=== PATIENT | male | born 1980 | race Caucasian/White ===

== ENCOUNTER 2016-11-07 19:55 | Emergency (ER) | payer SELFPAY ==
[~2016-11-07] VITALS: Ht 180.3 cm; Wt 113.5 kg
[~2016-11-07 19:55] MED LIST: HYDR-3240 PO; OMEP-110 PO; OMEP20TA62 PO; ONDA4TAB10 PO; RANI150T8 PO; TRAM50TA2 PO
[2016-11-07 19:56] VITALS: BP 117/78
[2016-11-07] MEDS ORDERED: KETOROLAC 30 MG/1 ML IM ONE (20:30)
[2016-11-07] MEDS ORDERED: DIAZEPAM 5 MG TABLET PO ONE (20:30)
[2016-11-07] MEDS ORDERED: HYDROcodone/APAP 5/325 TABLET PO ONE (20:30)
[2016-11-07] MEDS ORDERED: KETOROLAC 30 MG/1 ML ONE (21:06)
[2016-11-07] MEDS ORDERED: HYDROcodone/APAP 5/325 TABLET ONE (21:06)
[2016-11-07] MEDS ORDERED: DIAZEPAM 5 MG TABLET ONE (21:06)
== END 2016-11-07 21:30 | disposition home or self-care (01) ==
LOC: ED 21:00
DX: S39.012A Strain of muscle, fascia and tendon of lower back, initial encounter (principal); Z90.49 Acquired absence of other specified parts of digestive tract; X50.0XXA Overexertion from strenuous movement or load, initial encounter; Y93.89 Activity, other specified; Y92.89 Other specified places as the place of occurrence of the external cause; Y99.8 Other external cause status
CPT/HCPCS: 72110; 96372; 99284; J1885

== ENCOUNTER 2016-12-25 06:05 | Inpatient (IN) | payer OTHER ==
[~2016-12-25] VITALS: Ht 180.3 cm; Wt 99.2 kg
[2016-12-25] MEDS ORDERED: ONDANSETRON 2MG/ML, 2ML IVPush ONE (06:30)
[2016-12-25] MEDS ORDERED: MAALOX/HYOSCYAMINE/LIDOCAINE 45 ML BTL PO ONE (06:30)
[2016-12-25] MEDS ORDERED: SODIUM CHLORIDE FLUSH 10ML SYR IVF ONE (06:30)
[2016-12-25] MEDS ORDERED: FAMOTIDINE 20 MG/2 ML IVP ONE (06:30)
[2016-12-25] MEDS ORDERED: FAMOTIDINE 20 MG/2 ML ONE (06:40)
[2016-12-25] MEDS ORDERED: ONDANSETRON 2MG/ML, 2ML ONE (06:40)
[2016-12-25] MEDS ORDERED: MAALOX/HYOSCYAMINE/LIDOCAINE 45 ML BTL ONE (06:40)
[2016-12-25 06:42] LABS: HEMATOCRIT 45.5 % (39.2-51.8); HEMOGLOBIN 15.8 g/dL (13.7-18.0); WHITE BLOOD COUNT 8.3 x10^3/uL (3.4-10)
[2016-12-25 06:55] LABS: ASPARTATE AMINO TRANSFERASE 20 U/L (15-37); BLOOD UREA NITROGEN 10 mg/dL (7-18)
[2016-12-25] MEDS ORDERED: DICYCLOMINE 10 MG/ML, 2ML IM ONE (06:58)
[2016-12-25] MEDS ORDERED: HYDROmorphone 1 MG/ML, 1ML ONE (08:59)
[2016-12-25] MEDS ORDERED: HYDROmorphone 1 MG/ML, 1ML IV ONE (09:00)
[2016-12-25] MEDS ORDERED: ZIPRASIDONE 20 MG INJ IM ONE ×2 (10:30→10:34)
[2016-12-25] MEDS ORDERED: NS + 20MEQ KCL 1,000 ML IV SCH (11:22)
[2016-12-25] MEDS ORDERED: FAMOTIDINE 20 MG TABLET PO SCH (11:30)
[2016-12-25] MEDS ORDERED: ACETAMINOPHEN 325 MG TABLET PO PRN (11:30)
[2016-12-25] MEDS: LACTASE 9,000 UNITS TABLET PO SCH ×2 (11:30→16:00)
[2016-12-25] MEDS ORDERED: KETOROLAC 30 MG/1 ML IM PRN (11:30)
[2016-12-25] MEDS ORDERED: ENOXAPARIN 40 MG/0.4 ML SQ SCH (11:30)
[2016-12-25] MEDS ORDERED: ONDANSETRON 2MG/ML, 2ML IVPush PRN (11:30)
[2016-12-25] MEDS ORDERED: ZIPRASIDONE 20 MG INJ IM PRN (11:30)
[2016-12-25] MEDS ORDERED: PROMETHAZINE 25 MG/ML, 1ML IM PRN (11:30)
[2016-12-25] MEDS: METOCLOPRAMIDE 5 MG/ML, 2ML IVPush SCH ×2 (12:20→18:05)
[2016-12-25] MEDS ORDERED: KETOROLAC 30 MG/1 ML IVPush PRN ×2 (12:35→17:30)
[2016-12-25 13:29] VITALS: BP 146/78
[2016-12-25] MEDS ORDERED: MAALOX/HYOSCYAMINE/LIDOCAINE 45 ML BTL PO PRN (16:30)
[2016-12-25 19:48] VITALS: BP 133/84
== END 2016-12-25 21:15 | disposition left against medical advice (07) | DRG 392 ==
LOC: ED 06:39 → EDIP 10:43 → 3NE 11:55
PROVIDERS: ADMIT Family Medicine; ATTEND Family Medicine
DX: R10.12 Left upper quadrant pain (principal); E73.9 Lactose intolerance, unspecified; F12.10 Cannabis abuse, uncomplicated; Z80.0 Family history of malignant neoplasm of digestive organs; Z90.49 Acquired absence of other specified parts of digestive tract; Z87.11 Personal history of peptic ulcer disease; K31.89 Other diseases of stomach and duodenum; R11.2 Nausea with vomiting, unspecified
CPT/HCPCS: 36415; 74020; 80053; 81003; 83690; 85025; 93005; 96372; 96374; 96375; J1170; J1650; J1885; J2405; J3480; J3486; J0500; J2765; S0028

== ENCOUNTER 2017-02-26 07:42 | Emergency (ER) | payer SELFPAY ==
[~2017-02-26] VITALS: Ht 180.3 cm; Wt 102.0 kg
[2017-02-26] MEDS ORDERED: ONDANSETRON 2MG/ML, 2ML ONE (08:25)
[2017-02-26] MEDS ORDERED: RANI75TA12 PO (08:31)
[2017-02-26] MEDS ORDERED: HYDROmorphone 1 MG/ML, 1ML ONE (08:35)
[2017-02-26] MEDS ORDERED: DIPHENHYDRAMINE 50 MG/ML, 1ML IVPush ONE (09:00)
[2017-02-26] MEDS ORDERED: HYDROmorphone 1 MG/ML, 1ML IVPush PRN (09:00)
[2017-02-26] MEDS ORDERED: METOCLOPRAMIDE 5 MG/ML, 2ML IVPush ONE (09:00)
[2017-02-26] MEDS ORDERED: ONDANSETRON 2MG/ML, 2ML IVPush ONE (09:00)
[2017-02-26] MEDS ORDERED: SODIUM CHLORIDE FLUSH 10ML SYR IVF ONE (09:00)
[2017-02-26] MEDS ORDERED: HALOPERIDOL 5 MG/ML IV ONE (09:00)
[2017-02-26] MEDS ORDERED: SODIUM CHLORIDE 0.9% 1,000ML IVBOLUS ONE (09:00)
[2017-02-26 09:03] LABS: ASPARTATE AMINO TRANSFERASE 16 U/L (15-37); BLOOD UREA NITROGEN 7 mg/dL (7-18)
[2017-02-26] MEDS ORDERED: HALOPERIDOL 5 MG/ML ONE (09:03)
[2017-02-26] MEDS ORDERED: DIPHENHYDRAMINE 50 MG/ML, 1ML ONE (09:03)
[2017-02-26] MEDS ORDERED: METOCLOPRAMIDE 5 MG/ML, 2ML ONE (09:03)
[2017-02-26 09:06] LABS: HEMATOCRIT 49.8 % (39.2-51.8); HEMOGLOBIN 17.2 g/dL (13.7-18.0); WHITE BLOOD COUNT 13.8 x10^3/uL (3.4-10)
[2017-02-26] MEDS ORDERED: HALOPERIDOL 5 MG/ML IM ONE (09:30)
[2017-02-26 10:20] VITALS: BP 117/74
== END 2017-02-26 10:36 | disposition home or self-care (01) ==
LOC: ED 08:37
DX: G43.A0 Cyclical vomiting, in migraine, not intractable (principal); K21.9 Gastro-esophageal reflux disease without esophagitis; Z90.49 Acquired absence of other specified parts of digestive tract
CPT/HCPCS: 36415; 80053; 83690; 85025; 96361; 96372; 96374; 96375; 99285; J1170; J1200; J1630; J2405; J2765; J7030

== ENCOUNTER 2017-05-19 05:32 | Emergency (ER) | payer SELFPAY ==
[~2017-05-19] VITALS: Ht 180.3 cm; Wt 100.9 kg
[~2017-05-19 05:32] MED LIST changes: +RANI75TA12 PO
[2017-05-19] MEDS ORDERED: HALOPERIDOL 5 MG/ML ONE (06:25)
[2017-05-19] MEDS ORDERED: DIPHENHYDRAMINE 50 MG/ML, 1ML ONE (06:25)
[2017-05-19] MEDS ORDERED: DIPHENHYDRAMINE 50 MG/ML, 1ML IVPush ONE ×2 (06:30)
[2017-05-19] MEDS ORDERED: SODIUM CHLORIDE FLUSH 10ML SYR IVF ONE (06:30)
[2017-05-19] MEDS ORDERED: HALOPERIDOL 5 MG/ML IM ONE (06:30)
[2017-05-19] MEDS ORDERED: HALOPERIDOL 5 MG/ML IVPush ONE (06:30)
[2017-05-19] MEDS ORDERED: SODIUM CHLORIDE 0.9% 1,000ML IVBOLUS ONE (06:30)
[2017-05-19] MEDS ORDERED: OXYcodone/APAP 5/325MG TABLET PO ONE (07:30)
[2017-05-19] MEDS ORDERED: OXYcodone/APAP 5/325MG TABLET ONE (07:37)
[2017-05-19 07:38] VITALS: BP 105/73
== END 2017-05-19 09:09 | disposition home or self-care (01) ==
LOC: ED 07:32
DX: G43.A0 Cyclical vomiting, in migraine, not intractable (principal)
CPT/HCPCS: 74021; 96361; 96372; 96374; 99285; J1200; J1630; J7030

== ENCOUNTER 2017-05-21 03:25 | Emergency (ER) | payer SELFPAY ==
[~2017-05-21] VITALS: Ht 180.3 cm; Wt 97.6 kg
[2017-05-21] MEDS ORDERED: MAALOX/HYOSCYAMINE/LIDOCAINE 45 ML BTL ONE (04:05)
[2017-05-21] MEDS ORDERED: ZIPRASIDONE 20 MG INJ IM ONE ×2 (04:09→04:30)
[2017-05-21] MEDS ORDERED: ONDANSETRON ODT 4 MG ONE (04:09)
[2017-05-21] MEDS ORDERED: MAALOX/HYOSCYAMINE/LIDOCAINE 45 ML BTL PO ONE (04:30)
[2017-05-21] MEDS ORDERED: SODIUM CHLORIDE 0.9% 1,000ML IVBOLUS ONE (04:30)
[2017-05-21] MEDS ORDERED: ONDANSETRON 2MG/ML, 2ML IVPush ONE (04:30)
[2017-05-21 04:47] LABS: BASOPHILS # (AUTO) 0.04 x10^3/uL (0-0.1); BASOPHILS % (AUTO) 0 % (0-1); EOSINOPHILS # (AUTO) 0.02 x10^3/uL (0-0.4); EOSINOPHILS % (AUTO) 0 % (1-7); LYMPHOCYTES # (AUTO) 2.84 x10^3/uL (1-3.4); LYMPHOCYTES % (AUTO) 23 % (22-44); MD NO; MEAN CORPUSCULAR HEMOGLOBIN 33.2 pg (27.5-34.5); MEAN CORPUSCULAR HGB CONC 35.3 g/dL (33.2-36.2); MEAN CORPUSCULAR VOLUME 93.9 fL (81-97); MEAN PLATELET VOLUME 8.5 fL (7.4-10.4); MONOCYTES # (AUTO) 0.89 x10^3/uL (0.2-0.8); MONOCYTES % (AUTO) 7 % (2-9); NEUTROPHILS # (AUTO) 8.67 x10^3/uL (1.8-6.8); NEUTROPHILS % (AUTO) 70 % (42-75); PLATELET COUNT 201 x10^3/uL (130-400); RED BLOOD COUNT 5.06 x10^6/uL (4.38-5.82); RED CELL DISTRIBUTION WIDTH 12.3 % (9.4-14.8)
[2017-05-21 04:59] LABS: ALANINE AMINOTRANSFERASE 29 U/L (12-78); ALBUMIN 4.3 g/dL (3.4-5.0); ANION GAP 11 mmol/L (5-15); CALCIUM 8.8 mg/dL (8.5-10.1); CHLORIDE 103 mmol/L (98-107); CREATININE 0.95 mg/dL (0.7-1.3)
[2017-05-21 05:01] LABS: ALKALINE PHOSPHATASE 77 U/L (45-117); BILIRUBIN,TOTAL 1.6 mg/dL (0.2-1.0); TOTAL PROTEIN 7.5 g/dL (6.4-8.2)
[2017-05-21 06:02] VITALS: BP 161/92
== END 2017-05-21 06:04 | disposition home or self-care (01) ==
LOC: ED 04:03
DX: R11.2 Nausea with vomiting, unspecified (principal); R10.13 Epigastric pain; Z87.891 Personal history of nicotine dependence; Z90.49 Acquired absence of other specified parts of digestive tract
CPT/HCPCS: 36415; 80053; 83690; 85025; 96372; 99284; J3486

== ENCOUNTER 2017-10-06 05:36 | Emergency (ER) | payer OTHER ==
[~2017-10-06] VITALS: Ht 180.3 cm; Wt 100.1 kg
[~2017-10-06 05:36] MED LIST changes: +RANI150T23 PO; -RANI150T8 PO
[2017-10-06] MEDS ORDERED: ZIPRASIDONE 20 MG INJ IM ONE ×2 (06:00→06:30)
[2017-10-06] MEDS ORDERED: METOCLOPRAMIDE 5 MG/ML, 2ML ONE (06:00)
[2017-10-06 06:25] LABS: BASOPHILS # (AUTO) 0.04 x10^3/uL (0-0.1); BASOPHILS % (AUTO) 1 % (0-1); EOSINOPHILS # (AUTO) 0.16 x10^3/uL (0-0.4); EOSINOPHILS % (AUTO) 2 % (1-7); LYMPHOCYTES # (AUTO) 3.02 x10^3/uL (1-3.4); LYMPHOCYTES % (AUTO) 41 % (22-44); MD NO; MEAN CORPUSCULAR HEMOGLOBIN 33.4 pg (27.5-34.5); MEAN CORPUSCULAR VOLUME 95.4 fL (81-97); MONOCYTES # (AUTO) 0.41 x10^3/uL (0.2-0.8); MONOCYTES % (AUTO) 5 % (2-9); NEUTROPHILS # (AUTO) 3.85 x10^3/uL (1.8-6.8); NEUTROPHILS % (AUTO) 52 % (42-75); PLATELET COUNT 208 x10^3/uL (130-400); RED BLOOD COUNT 4.87 x10^6/uL (4.38-5.82); RED CELL DISTRIBUTION WIDTH 12.2 % (9.4-14.8)
[2017-10-06] MEDS ORDERED: METOCLOPRAMIDE 5 MG/ML, 2ML IM ONE (06:30)
[2017-10-06 06:36] LABS: ALANINE AMINOTRANSFERASE 29 U/L (12-78); ANION GAP 10 mmol/L (5-15); CHLORIDE 109 mmol/L (98-107); CREATININE 0.79 mg/dL (0.7-1.3)
[2017-10-06 06:38] LABS: ALKALINE PHOSPHATASE 90 U/L (45-117); BILIRUBIN,TOTAL 0.7 mg/dL (0.2-1.0); TOTAL PROTEIN 7.2 g/dL (6.4-8.2)
[2017-10-06] MEDS ORDERED: PROMETHAZINE 25 MG/ML, 1ML ONE (07:21)
[2017-10-06] MEDS ORDERED: PROMETHAZINE 25 MG/ML, 1ML IM ONE (07:30)
[2017-10-06] MEDS ORDERED: MAALOX/HYOSCYAMINE/LIDOCAINE 45 ML BTL ONE (08:47)
[2017-10-06] MEDS ORDERED: MAALOX/HYOSCYAMINE/LIDOCAINE 45 ML BTL PO ONE (09:00)
[2017-10-06 09:21] VITALS: BP 161/82
== END 2017-10-06 09:51 | disposition home or self-care (01) ==
LOC: ED 07:11
DX: G89.29 Other chronic pain (principal); R10.84 Generalized abdominal pain; T40.7X5A Adverse effect of cannabis (derivatives), initial encounter
CPT/HCPCS: 36415; 80053; 83690; 85025; 93005; 96372; 99285; J2550; J2765; J3486